=== PATIENT | female | born 2005 | race Caucasian/White ===

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

== ENCOUNTER 2023-03-18 23:55 | Observation (INO) | payer MEDICAID, OTHER, SELFPAY ==
[~2023-03-18] VITALS: Ht 143.5 cm; Wt 58.4 kg
[2023-03-19 00:42] LABS: BASO % 0.4 % (0.0-1.0); EOS # 0.1 10^3/uL (0.0-0.5); EOS % 1.3 % (0.0-3.0); HEMATOCRIT 46.3 % (36.0-47.0); HEMOGLOBIN 15.8 g/dl (12.0-15.5); LYMPH # 3.3 10^3/uL (1.5-5.0); LYMPH % 31.7 % (24.0-44.0); MEAN CORPUSCULAR HEMOGLOBIN 30.1 pg (27.0-33.0); MEAN CORPUSCULAR HGB CONC 34.1 g/dl (32.0-36.5); MEAN CORPUSCULAR VOLUME 88.2 fl (80.0-96.0); MONO # 0.8 10^3/uL (0.0-0.8); MONO % 8.1 % (2.0-8.0); NEUTROPHILS % 58.1 % (36.0-66.0); PLATELET COUNT, AUTOMATED 285 10^3/uL (150-450); RED BLOOD COUNT 5.25 10^6/uL (4.00-5.40); WHITE BLOOD COUNT 10.4 10^3/uL (4.0-10.0)
[2023-03-19 01:05] LABS: ETHYL ALCOHOL (ETHANOL) < 0.003 % (0.000-0.010)
[2023-03-19 01:06] LABS: HCG, SERUM QUALITATIVE NEGATIVE (NEGATIVE)
[2023-03-19 01:07] LABS: ACETAMINOPHEN LEVEL < 2.0 UG/ML (10.0-20.0); ALBUMIN 5.1 G/DL (3.2-5.2); ALKALINE PHOSPHATASE 117 U/L (46-116); ALT/SGPT 12 U/L (7.0-40); AST/SGOT 11 U/L (<34); BILIRUBIN,DIRECT 0.2 MG/DL (<0.4); BILIRUBIN,TOTAL 0.6 MG/DL (0.3-1.2); BLOOD UREA NITROGEN 6 MG/DL (9-23); CALCIUM LEVEL 9.8 MG/DL (8.5-10.1); CARBON DIOXIDE LEVEL 25 MMOL/L (20-31); CHLORIDE LEVEL 102 MMOL/L (98-107); CPK CREATINE PHOSPHOKINASE 29 U/L (34-145); CREATININE FOR GFR 0.59 MG/DL (0.55-1.30); GLUCOSE, FASTING 102 MG/DL (60-100); POTASSIUM SERUM 3.4 MMOL/L (3.5-5.1); SALICYLATE LEVEL < 3.0 MG/DL (<30); SODIUM LEVEL 139 MMOL/L (136-145); TOTAL PROTEIN 8.8 G/DL (5.7-8.2)
[2023-03-19 01:11] LABS: RSV AMPLIFICATION NEGATIVE (NEGATIVE)
[2023-03-19] MEDS: NS 1,000 ML IV SCH ×3 (01:44→03:25)
[2023-03-19] MEDS ORDERED: LEXA1TAB PO ×2 (02:37)
[2023-03-19] MEDS ORDERED: MELA1TAB9 PO (02:37)
[2023-03-19] MEDS ORDERED: PRAZ1CAP PO (02:37)
[2023-03-19] MEDS ORDERED: LAMO150T3 PO (02:37)
[2023-03-19] MEDS ORDERED: HOME MED LIST COMPLETE! XX SCH (02:40)
[2023-03-19 02:41] LABS: AMPHETAMINES LEVEL URINE NEGATIVE (NEGATIVE); BARBITURATES URINE NEGATIVE (NEGATIVE); BENZODIAZEPINES URINE NEGATIVE (NEGATIVE); COCAINE METABOLITE URINE NEGATIVE (NEGATIVE); METHADONE URINE NEGATIVE (NEGATIVE); OPIATES URINE NEGATIVE (NEGATIVE); PHENCYCLIDINE URINE NEGATIVE (NEGATIVE)
[2023-03-19 02:44] LABS: CANNABINOIDS URINE POSITIVE (NEGATIVE)
[2023-03-19] MEDS ORDERED: ACETAMINOPHEN TAB 650MG DOSE (2X325MG) PO PRN (02:50)
[2023-03-19] MEDS ORDERED: ONDANSETRON 4MG ORAL DISINTEGRATING TAB PO PRN (04:05)
[2023-03-19 04:15] VITALS: BP 100/65; TEMP 97.2; O2SAT 98
[2023-03-19 14:00] VITALS: BP 109/70; TEMP 98.8; O2SAT 95
[2023-03-19 22:14] VITALS: BP 108/76; TEMP 97.7; O2SAT 98
[2023-03-20 04:00] VITALS: BP 100/70; TEMP 98.1
[2023-03-20 07:08] LABS: ALBUMIN 3.7 G/DL (3.2-5.2); ALKALINE PHOSPHATASE 87 U/L (46-116); ALT/SGPT 10 U/L (7.0-40); AST/SGOT < 8 U/L (<34); BILIRUBIN,TOTAL 0.5 MG/DL (0.3-1.2); BLOOD UREA NITROGEN < 5 MG/DL (9-23); CALCIUM LEVEL 9.4 MG/DL (8.5-10.1); CARBON DIOXIDE LEVEL 30 MMOL/L (20-31); CHLORIDE LEVEL 105 MMOL/L (98-107); CREATININE FOR GFR 0.52 MG/DL (0.55-1.30); GLUCOSE, FASTING 82 MG/DL (60-100); MAGNESIUM LEVEL 1.8 MG/DL (1.8-2.4); POTASSIUM SERUM 3.6 MMOL/L (3.5-5.1); SODIUM LEVEL 141 MMOL/L (136-145); TOTAL PROTEIN 6.7 G/DL (5.7-8.2)
[2023-03-20 14:00] VITALS: BP 106/66; TEMP 98.5; O2SAT 94
[2023-03-20] MEDS ORDERED: PRAZ1CAP PO (16:34)
[2023-03-20] MEDS ORDERED: MELA5TAB7 PO (16:34)
[2023-03-20] MEDS ORDERED: LAMI1TAB8 PO (16:34)
[2023-03-20] MEDS ORDERED: LEXA1TAB PO (16:34)
== END 2023-03-20 15:56 ==
LOC: M ED 23:55 → M ED INP 23:56 → M MSPAV 03-19 04:06
PROVIDERS: ADMIT Internal Medicine; ATTEND Internal Medicine
DX: T43.292A Poisoning by other antidepressants, intentional self-harm, initial encounter (principal); T50.992A Poisoning by other drugs, medicaments and biological substances, intentional self-harm, initial encounter; Y92.89 Other specified places as the place of occurrence of the external cause; Y93.9 Activity, unspecified; Y99.9 Unspecified external cause status; F41.9 Anxiety disorder, unspecified; F32.A Depression, unspecified; F19.10 Other psychoactive substance abuse, uncomplicated; Z79.899 Other long term (current) drug therapy

== ENCOUNTER 2023-03-20 11:11 | Inpatient (IN) | payer OTHER ==
[~2023-03-20] VITALS: Ht 143.5 cm; Wt 57.2 kg
[2023-03-20] MEDS: NICOTINE 14 MG/24 HR TRANSDERMAL TD SCH (09:00)
[~2023-03-20 11:11] MED LIST: LAMO150T3 PO; LEXA1TAB PO; MELA1TAB9 PO; PRAZ1CAP PO
[2023-03-20] MEDS ORDERED: diphenhydrAMINE 25MG CAP PO PRN (11:45)
[2023-03-20] MEDS ORDERED: MAALOX 30 ML SUSP *UDC PO PRN (11:45)
[2023-03-20] MEDS ORDERED: IBUPROFEN 400MG TAB PO PRN (11:45)
[2023-03-20] MEDS ORDERED: ACETAMINOPHEN TAB 650MG DOSE (2X325MG) PO PRN (11:45)
[2023-03-20] MEDS ORDERED: traZODone 50 MG TAB PO PRN (11:45)
[2023-03-20] MEDS ORDERED: MOM 30ML SUSPENSION UDC PO PRN (11:45)
[2023-03-20 16:05] VITALS: BP 114/72; TEMP 99.1
[2023-03-20] MEDS ORDERED: MELA5TAB7 PO (16:34)
[2023-03-20] MEDS ORDERED: LEXA1TAB PO (16:34)
[2023-03-20] MEDS ORDERED: LAMI1TAB8 PO (16:34)
[2023-03-20] MEDS ORDERED: PRAZ1CAP PO (16:34)
[2023-03-20] MEDS ORDERED: HOME MED LIST COMPLETE! XX SCH (16:35)
[2023-03-21 06:43] VITALS: BP 100/64; TEMP 97.2; O2SAT 98
[2023-03-21] MEDS: NICOTINE 14 MG/24 HR TRANSDERMAL TD SCH (09:00)
[2023-03-21] MEDS: VENLAFAXINE **XR** 37.5 MG CAPSULE PO SCH (09:31)
[2023-03-21 16:13] VITALS: BP 120/69; TEMP 97.7; O2SAT 98
[2023-03-21] MEDS: PRAZOSIN 1 MG CAP PO SCH (21:42)
[2023-03-22 06:34] VITALS: BP 98/57; TEMP 97.5; O2SAT 100
[2023-03-22] MEDS: VENLAFAXINE **XR** 37.5 MG CAPSULE PO SCH (08:26)
[2023-03-22] MEDS: NICOTINE 14 MG/24 HR TRANSDERMAL TD SCH (09:00)
[2023-03-22 18:00] VITALS: BP 120/80; TEMP 96.7; O2SAT 98
[2023-03-22] MEDS: PRAZOSIN 1 MG CAP PO SCH (20:25)
[2023-03-23 05:58] VITALS: BP 100/55; TEMP 98.2; O2SAT 97
[2023-03-23] MEDS: NICOTINE 14 MG/24 HR TRANSDERMAL TD SCH (09:00)
[2023-03-23] MEDS: VENLAFAXINE **XR** 37.5 MG CAPSULE PO SCH (09:10)
[2023-03-23 17:47] VITALS: BP 122/72; TEMP 97.1
[2023-03-23 20:33] VITALS: BP 115/73
[2023-03-23] MEDS: PRAZOSIN 1 MG CAP PO SCH (20:33)
[2023-03-24 06:02] VITALS: BP 116/51; TEMP 97.4; O2SAT 96
[2023-03-24] MEDS: NICOTINE 14 MG/24 HR TRANSDERMAL TD SCH (09:00)
[2023-03-24] MEDS ORDERED: PRAZ1CAP PO (09:00)
[2023-03-24] MEDS ORDERED: VENL37.598 PO (09:00)
[2023-03-24] MEDS: VENLAFAXINE **XR** 37.5 MG CAPSULE PO SCH (09:13)
== END 2023-03-24 11:59 | disposition home or self-care (01) | DRG 881 ==
LOC: M PSY 16:00
PROVIDERS: ADMIT Student in an Organized Health Care Education/Training Program; ATTEND Student in an Organized Health Care Education/Training Program
DX: F32.A Depression, unspecified (principal); R45.851 Suicidal ideations; F60.3 Borderline personality disorder; F41.9 Anxiety disorder, unspecified; Z79.899 Other long term (current) drug therapy

== ENCOUNTER → 2025-01-03 | Outpatient (REF) | payer OTHER, MEDICAID, BC ==
[~2025-01-03] MED LIST changes: +LAMI1TAB8 PO; -MELA1TAB9 PO; +MELA5TAB58 PO; +MELA5TAB7 PO; +VENL37.598 PO
== END ==
LOC: M LAB REF 17:41
PROVIDERS: ATTEND Nurse Practitioner Family
DX: R11.2 Nausea with vomiting, unspecified (principal); R30.0 Dysuria

== ENCOUNTER → 2025-04-17 | Outpatient (CLI) | payer BC, MEDICAID ==
[~2025-04-17] MED LIST changes: +MELA5TAB44 PO; -MELA5TAB7 PO
== END ==
LOC: M WUC 13:55
PROVIDERS: ATTEND Nurse Practitioner Family
DX: M25.562 Pain in left knee (principal)

== ENCOUNTER → 2025-05-28 | Outpatient (REF) | payer BC ==
[2025-05-28 19:57] LABS: Trichomonas vaginalis (AMP) NOT DETECTED (NEGATIVE)
[2025-05-28 20:20] LABS: GC DNA AMPLIFICATION NEGATIVE (NEGATIVE)
== END ==
LOC: M LAB REF 17:21
PROVIDERS: ATTEND Physician Assistant
DX: R30.0 Dysuria (principal)